=== PATIENT | male | born 1990 | race Caucasian/White ===

== ENCOUNTER → 2025-09-19 | Outpatient (CLI) | payer MEDICAID, SELFPAY ==
[2025-09-19 13:10] LABS: AST(SGOT) 25 U/L (<=37); Alanine Aminotransfer ALT/SGPT 32 U/L (<=46); Albumin, Serum 4.4 g/dL (3.5-5.0); Alkaline Phosphatase 71 U/L (40-129); Anion Gap 9 (5-15); BUN 13 mg/dL (4-19); BUN/Creat Ratio 14.5 RATIO (10-20); Calcium,Total 9.8 mg/dL (7.6-11.0); Carbon Dioxide 28.3 mmol/L (21.0-32.0); Chloride 103 mmol/L (98-108); Cholesterol 253 mg/dL (<=200); Globulin 2.8 g/dL (2.2-4.2); Glucose 102 mg/dL (70-99); Low Density Lipoprotein Calc. 164 mg/dL; Magnesium 2.1 mg/dL (1.5-2.2); Potassium 4.2 mmol/L (3.3-5.1); Triglycerides 229 mg/dL; Very Low Density Lipoprotein 46 mg/dL (5-40); Vitamin B12 326 pg/mL (180-914); Vitamin D,25 Hydroxy 19.6 ng/mL (30-100); cholesterol:hdl ratio screen 5.42
== END | disposition home or self-care (01) ==
PROVIDERS: PCP Family Medicine; Referring Provider Family Medicine; Visit Provider Family Medicine
DX: I10 Essential (primary) hypertension (principal); R53.83 Other fatigue
CPT/HCPCS: 36415; 80053; 80061; 82306; 82607; 83735; 84439; 84443